=== PATIENT | male | born 1940 | race Caucasian/White ===

== ENCOUNTER → 2021-06-10 | Outpatient (CLI) | payer OTHER ==
--- NOTE | 2021-06-10 14:10 | RAD ---
EXAM: Right ankle, 3 views; right foot, 3 views. HISTORY: Fracture. COMPARISON: 05/13/2021 FINDINGS: 3 views of the right foot and ankle are obtained. There is external casting material which limits evaluation of bony detail. There are track aldana due to prior instrumentation within the dista l tibia and fibula. There is instrumented fusion of the hindfoot. There is no evidence of instrumenta tion loosening. There is enthesopathy at the Achilles tendon insertion. There is no osteochondral les ion. There is severe first metatarsophalangeal joint space narrowing with degenerative subchondral sc lerosis, marginal osteophytosis, subchondral cyst formation, erosions and bony remodeling. IMPRESSION: 1. Instrumented fusion of the hindfoot and prior instrumentation explantation from the distal tibia a nd fibula. 2. 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 3. Limited exam due to external casting material. Electronically signed by: Linda Gordillo MD (06/10/2021 2:07 PM) [id number]
== END ==
LOC: RAD 13:22
PROVIDERS: ATTEND Podiatrist
DX: M25.871 Other specified joint disorders, right ankle and foot (principal); M77.8 Other enthesopathies, not elsewhere classified; M79.671 Pain in right foot; M25.571 Pain in right ankle and joints of right foot
CPT/HCPCS: 73610; 73630

== ENCOUNTER → 2021-07-08 | Outpatient (CLI) | payer MEDICARE ==
--- NOTE | 2021-07-08 19:11 | RAD ---
EXAM: 3 views right foot 3 views right ankle DATE: 07/08/2021 12:42 PM INDICATION: Reason: ANKLE AND FOOT PAIN, SURGERY 10 WEEKS AGO / Spl. Instructions: / History: . COMPARISON: 03/22/2021 04/20/2021, 05/13/2021, 06/10/2021 FINDINGS: Postoperative changes of subtalar and talonavicular arthrodesis without definite hardware complicatio n. There is suggestion of bony bridging. Cystic change and joint space effacement hallux MTP joint wi th advanced arthropathic joints. Lucency within the distal tibia possibly from prior bone graft har[address] st site. Talar tilt with eccentric widening of the mortise. Plantar arch is preserved. Ankle joint degenerative changes are seen. No acute fracture. IMPRESSION: Changes of hindfoot arthrodesis with suggestion of possible bony bridging. Advanced arthropathic changes hallux MTP joint with prominent cystic change and joint space effacemen t. Plantar arch is preserved. Electronically signed by: Rashawn Link MD (07/08/2021 7:08 PM) GRACE
== END ==
LOC: RAD 12:34
PROVIDERS: ATTEND Podiatrist
DX: M19.071 Primary osteoarthritis, right ankle and foot (principal)
CPT/HCPCS: 73610; 73630

== ENCOUNTER → 2021-08-29 | Outpatient (CLI) | payer OTHER ==
--- NOTE | 2021-08-29 09:18 | RAD ---
EXAM: Right foot, 3 views. HISTORY: Pain. COMPARISON: 07/08/2021 FINDINGS: 3 views of the right foot are obtained. There are stable postoperative changes consistent w ith subtalar and talonavicular instrumented fusion. There is no evidence of instrumentation loosening . There are suspected bony bridging across the subtalar joint. There is complete loss of the first me tatarsal phalangeal joint space with associated subchondral sclerosis, subchondral cyst formation, sp urring and bony remodeling. There is lucency involving the distal tibia due to prior instrumentation. This is not formally assessed on this exam. There is enthesopathy at Achilles tendon insertion. Ther e is a prominent os trigonum. IMPRESSION: 1. 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 2. Severe first metatarsophalangeal joint osteoarthritis. Electronically signed by: Linda Gordillo MD (08/29/2021 9:15 AM) [id number]
== END ==
LOC: RAD 08:52
PROVIDERS: ATTEND Podiatrist
DX: S93.421D Sprain of deltoid ligament of right ankle, subsequent encounter (principal); M19.071 Primary osteoarthritis, right ankle and foot; M76.61 Achilles tendinitis, right leg; M77.51 Other enthesopathy of right foot and ankle; X58.XXXD Exposure to other specified factors, subsequent encounter
CPT/HCPCS: 73630